=== PATIENT | female | born 1995 | race Caucasian/White ===

== ENCOUNTER 2021-05-19 18:08 | Emergency (ER) | payer MEDICAID, OTHER ==
[~2021-05-19] VITALS: Ht 167.6 cm; Wt 61.0 kg
[~2021-05-19 18:08] MED LIST: IBUP100T53
[2021-05-19 18:22] VITALS: BP 125/88
== END 2021-05-19 22:50 | disposition left against medical advice (07) ==
LOC: ER 18:08
DX: Z53.21 Procedure and treatment not carried out due to patient leaving prior to being seen by health care provider (principal)